=== PATIENT | male | born 1990 | race Caucasian/White ===

== ENCOUNTER 2016-08-16 10:28 | Outpatient (CLI) | payer SELFPAY ==
[~2016-08-16] VITALS: Ht 167.6 cm; Wt 90.7 kg
[~2016-08-16 10:28] MED LIST: PROP20TA5 PO
== END 2016-08-16 10:33 ==
LOC: PREOP 10:28
PROVIDERS: ATTEND Surgery
DX: Z01.818 Encounter for other preprocedural examination (principal); K21.9 Gastro-esophageal reflux disease without esophagitis; K62.5 Hemorrhage of anus and rectum

== ENCOUNTER 2017-04-28 12:00 | Outpatient (CLI) | payer SELFPAY ==
[~2017-04-28] VITALS: Ht 167.6 cm; Wt 90.7 kg
[2017-04-28] MEDS ORDERED: PANT40TA2 PO (12:52)
== END 2017-04-28 13:14 ==
LOC: PREOP 12:00
PROVIDERS: ATTEND Surgery
DX: Z01.818 Encounter for other preprocedural examination (principal); K62.5 Hemorrhage of anus and rectum; K21.9 Gastro-esophageal reflux disease without esophagitis

== ENCOUNTER → 2017-06-14 | Outpatient (CLI) | payer SELFPAY ==
[~2017-06-14] MED LIST changes: +PANT40TA2 PO
== END ==
LOC: PREOP 05:34
PROVIDERS: ATTEND Surgery
DX: Z01.818 Encounter for other preprocedural examination (principal); K62.5 Hemorrhage of anus and rectum; K21.9 Gastro-esophageal reflux disease without esophagitis